=== PATIENT | female | born 1965 | race Caucasian/White ===

== ENCOUNTER → 2017-03-04 | Outpatient (CLI) | payer BC ==
[~2017-03-04] MED LIST: ALLEGRA ALLERG180 MG PO; ALLEGRA30 MG PO; CLARITIN; COZAAR 50MG50 MG/TAB PO; FISH OIL 1000MG1 CAP PO; GLUCOPHAGE500 MG/TAB PO; HYDROCODONE/APAP; LIPITOR 10MG10 MG PO; LORTAB 7.5/5001 TAB PO; NORCO 325 MG-7.1 TAB PO; PHENERGAN 25 TA25 MG PO; PHENERGAN25 MG RC; PRAVACHOL 40MG40 MG PO; PREVACID 15MG15 M1; PREVACID 15MG15 M1 PO; PREVACID30 MG PO; PRILOTC PO; VALIUM5 MG PO; ZOFRAN ODT4 MG PO
== END ==
LOC: MC.RAD 13:20
DX: Z12.31 Encounter for screening mammogram for malignant neoplasm of breast (principal)

== ENCOUNTER 2017-03-14 08:25 | Day surgery (SDC) | payer BC ==
[2005-04-09 10:33] VITALS: BP 127/71
[~2017-03-14] VITALS: Ht 175.3 cm; Wt 106.8 kg
[~2017-03-14 08:25] MED LIST changes: -ALLEGRA ALLERG180 MG PO; -COZAAR 50MG50 MG/TAB PO; -FISH OIL 1000MG1 CAP PO; -GLUCOPHAGE500 MG/TAB PO
[2017-03-14] MEDS ORDERED: PRAVACHOL 40MG40 MG PO (08:50)
[2017-03-14] MEDS ORDERED: COZAAR 50MG50 MG/TAB PO (08:50)
[2017-03-14] MEDS ORDERED: FISH OIL 1000MG1 CAP PO (08:50)
[2017-03-14] MEDS ORDERED: ALLEGRA ALLERG180 MG PO (08:51)
[2017-03-14] MEDS ORDERED: GLUCOPHAGE500 MG/TAB PO (08:52)
[2017-03-14 08:59] VITALS: BP 136/76; PULSE 66; TEMP 98.4
[2017-03-14 10:44] VITALS: BP 105/58; PULSE 64; TEMP 98
[2017-03-14 11:00] VITALS: BP 105/66; PULSE 64
[2017-03-14 11:15] VITALS: BP 101/58; PULSE 62
[2017-03-14 11:56] VITALS: BP 105/54; PULSE 56
== END 2017-03-14 11:50 | disposition home or self-care (01) ==
LOC: SDCO 08:25
DX: K63.89 Other specified diseases of intestine (principal); E11.9 Type 2 diabetes mellitus without complications; I10 Essential (primary) hypertension; E78.5 Hyperlipidemia, unspecified; K21.9 Gastro-esophageal reflux disease without esophagitis; F41.9 Anxiety disorder, unspecified; J30.9 Allergic rhinitis, unspecified; E66.09 Other obesity due to excess calories; Z68.41 Body mass index [BMI] 40.0-44.9, adult; Z79.84 Long term (current) use of oral hypoglycemic drugs; Z90.710 Acquired absence of both cervix and uterus; Z90.49 Acquired absence of other specified parts of digestive tract; Z82.49 Family history of ischemic heart disease and other diseases of the circulatory system; Z83.3 Family history of diabetes mellitus
CPT/HCPCS: OP; J2250; J2405; J3010; J7030

== ENCOUNTER → 2018-06-09 | Outpatient (CLI) | payer BC ==
[~2018-06-09] MED LIST changes: +ALLEGRA ALLERG180 MG PO; +COZAAR 50MG50 MG/TAB PO; +FISH OIL 1000MG1 CAP PO; +GLUCOPHAGE500 MG/TAB PO
== END ==
LOC: MC.RAD 14:38
DX: Z12.31 Encounter for screening mammogram for malignant neoplasm of breast (principal)

== ENCOUNTER → 2019-05-28 | Outpatient (CLI) | payer OTHER | LOC: MC.RAD 06:56 | DX: Z12.31 Encounter for screening mammogram for malignant neoplasm of breast (principal) ==

== ENCOUNTER → 2020-05-30 | Outpatient (CLI) | payer OTHER | LOC: MC.RAD 14:11 | DX: Z12.31 Encounter for screening mammogram for malignant neoplasm of breast (principal) ==